=== PATIENT | female | born 1985 | race American Indian/Alaskan Native ===

== ENCOUNTER 2017-01-10 01:43 | Emergency (ER) | payer OTHER ==
[2017-01-10 02:31] VITALS: BP 126/84
--- NOTE | 2017-01-10 03:14 | Emergency Department Report ---
HPI - General Chief Complaint: Dental/Oral Time Seen by Provider: 01/10/17 03:10 - HPI HPI: The patient is 31 -year-old female who presents to ED complaining of 10/10 pain in the right side of his mouth x days . Patient states that the pain started 4days ago and has increased in severity over the last 2-3 days. The pain is exacerbated by eating and opening of the mouth. Patient states the pain is alleviated initially with pain medication but comes back. Patient states that it radiates towards ear. Patient describes a as a throbbing, pressure-like sensation. Patient states otherwise well and has no other complaints. Patient has had no fevers and no chills. No chest pain, no shortness of breath. No abdominal pain. No shortness of breath or recent trauma to the face. ED Past Medical Hx - Past Medical History Previous Medical History?: No - Surgical History Past Surgical History?: No - Social History Smoking Status: Current Every Day Smoker Substance Use Type: None - Medications Home Medications: Home Medications Medication Instructions Recorded Confirmed Last Taken Type Acetaminophen/Codeine 1 tab PO Q6H #12 tablet 01/10/17 Unknown Rx [Acetaminophen-Codeine #3 TAB] Amoxicillin [Trimox CAP] 500 mg PO BID #20 capsule 01/10/17 Unknown Rx ED Review of Systems ROS: Stated complaint: TOOTHACHE Other details as noted in HPI Constitutional: denies: chills, fever Eyes: denies: eye pain, eye discharge, vision change ENT: dental pain. denies: ear pain, throat pain, hearing loss, epistaxis, congestion Respiratory: denies: cough, shortness of breath, wheezing Cardiovascular: denies: chest pain, palpitations Endocrine: no symptoms reported Gastrointestinal: denies: abdominal pain, nausea, diarrhea Genitourinary: denies: urgency, dysuria, discharge Musculoskeletal: denies: back pain, joint swelling, arthralgia Skin: denies: rash, lesions Neurological: denies: headache, weakness, paresthesias Psychiatric: denies: anxiety, depression Hematological/Lymphatic: denies: easy bleeding, easy bruising Physical Exam - Physical Exam Vital Signs: Vital Signs 01/10/17 02:26 Temperature 98.4 F Pulse Rate 80 Respiratory 18 Rate Blood Pressure 126/84 O2 Sat by Pulse 99 Oximetry Physical Exam: GENERAL: Alert and oriented x3, no apparent distress, Normal Gait, atraumatic. HEAD: Head is normocephalic and a-traumatic. EYES: Extra ocular muscles are intact. Pupils are equal, round, and reactive to light and accommodation.al. MOUTH:Mouth is well hydrated and without lesions. Tonsils nonerythematous or swollen, Uvula midline, Tongue not elevated. Mucous membranes are moist. Posterior pharynx clear, no exudate or lesions. Patent airways. Dental caries seen on tooth number 15. No dental abscesses. No gingival enlargement NECK: Supple. Non edematous, No carotid bruits. No lymphadenopathy or thyromegaly. LUNGS: Symetrical with respiration, No wheezing, no rales or crackles, CTAB. HEART: S1, S2 present, regular rate and rhythm without murmur, no rubs, no gallops. NEUROLOGIC: No focal Deficit, Cranial nerves II through XII are grossly intact. No loss of sensation, PSYCHIATRIC: Mood is congruent with affect, denies suicidal or homicidal ideations. SKIN: Warm and dry, No lesions, No ulceration or induration present. . ED Course Vital Signs 01/10/17 02:26 Temperature 98.4 F Pulse Rate 80 Respiratory 18 Rate Blood Pressure 126/84 O2 Sat by Pulse 99 Oximetry ED Medical Decision Making - Medical Decision Making 31-year-old female presents with dental paindue to caries or infection ED course: Patient received Tylenol 3 and amoxicillin . Discussed the patient to follow up with dentist has referred. Discussed to take antibiotics and pain medication as needed. Vital signs are normal patient is in no acute respiratory distress. Patient states he'll follow up with dentist Critical care attestation.: If time is entered above; I have spent that time in minutes in the direct care of this critically ill patient, excluding procedure time. ED Disposition Clinical Impression: Pain, dental, Dental caries Disposition: DISCHARGED TO HOME OR SELFCARE Is pt being admited?: No Does the pt Need Aspirin: No Condition: Stable Instructions: Dental Caries (ED), Toothache (ED) Prescriptions: Acetaminophen/Codeine [Acetaminophen-Codeine #3 TAB] 1 tab PO Q6H #12 tablet Amoxicillin [Trimox CAP] 500 mg PO BID #20 capsule Referrals: [facility] [Outside] - 3-5 Days [facility] [Outside] - 3-5 Days [facility] [Outside] - 3-5 Days Forms: Accompanied Note, Work/School Release Form(ED) Time of Disposition: 03:35
[2017-01-10] MEDS ORDERED: TYLENOL #3 PO ONE (03:27)
[2017-01-10] MEDS ORDERED: TRIMOX PO ONE (03:27)
== END 2017-01-10 03:49 | disposition home or self-care (01) ==
LOC: ED 01:43
DX: K02.9 Dental caries, unspecified (principal); F17.200 Nicotine dependence, unspecified, uncomplicated
CPT/HCPCS: 99282